=== PATIENT | female | born 1985 | race Two or more races ===

== ENCOUNTER 2023-12-18 09:57 | Outpatient (CLI) | payer OTHER | END 2023-12-18 10:04 | disposition home or self-care (01) | LOC: RAD 09:57 | DX: Z01.812 Encounter for preprocedural laboratory examination (principal); Z64.1 Problems related to multiparity ==

== ENCOUNTER 2024-03-16 08:10 | Outpatient (CLI) | payer OTHER | END 2024-03-16 08:15 | disposition home or self-care (01) | LOC: RAD 08:10 | PROVIDERS: ATTEND Orthopaedic Surgery | DX: G56.21 Lesion of ulnar nerve, right upper limb (principal) ==